=== PATIENT | male | born 1960 | race Caucasian/White ===

== ENCOUNTER → 2018-01-27 | Outpatient (CLI) | payer OTHER ==
[2018-01-27] MEDS: REGADENOSON 0.4 MG/5 ML DISP.SYRIN. IV (11:42)
== END | disposition home or self-care (01) ==
LOC: NM 07:41
DX: I10 Essential (primary) hypertension (principal); E11.9 Type 2 diabetes mellitus without complications; J44.9 Chronic obstructive pulmonary disease, unspecified; F17.200 Nicotine dependence, unspecified, uncomplicated; R06.00 Dyspnea, unspecified
CPT/HCPCS: 78452; 93017; 96374; 96375; 96376; A9500; J2785

== ENCOUNTER → 2020-12-23 | Outpatient (CLI) | payer OTHER ==
[2015-11-06 15:00] VITALS: BP 165/89
[~2020-12-23] MED LIST: AZIT250T6 PO; BENZ100C PO; HYDR-3164 PO; LISI10TA16 PO; ONDA4TAB10 SL
--- NOTE | 2020-12-23 16:38 | KCIC ---
EXAM: Lumbar spine, 5 views. HISTORY: Pain. COMPARISON: None. FINDINGS: 5 views of the lumbar spine are obtained. 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 These are no rmal variants. There is minimal retrolisthesis of L4 on L5, measuring 3 mm. There is multilevel endpl ate remodeling. There is disc space narrowing predominantly at L4-L5. There is facet arthropathy at t he mid lower lumbar levels. IMPRESSION: 1. Multilevel degenerative change, primarily at L4-L5. 2. No acute osseous finding. Electronically signed by: Ella Powell MD (12/23/2020 4:36 PM) [email or web address]
--- NOTE | 2020-12-23 16:42 | KCIC ---
EXAM: Cervical spine, 4 views HISTORY: Pain. COMPARISON: None. FINDINGS: 4 views of the cervical spine are obtained. There is mild cervical kyphosis at C5-C6. There is minimal anterolisthesis of C4 on C5. There is degenerative endplate remodeling with disc space na rrowing and osteophytosis at C5-C7. There is additional less severe endplate remodeling and anterior osteophytosis at the upper and mid cervical levels. There is multilevel facet arthropathy. IMPRESSION: 1. Multilevel degenerative change, primarily at C5-C7. 2. No acute osseous finding. Electronically signed by: Ella Powell MD (12/23/2020 4:40 PM) [email or web address]
== END ==
LOC: KCIC 15:55
PROVIDERS: ATTEND Family Medicine
DX: M47.816 Spondylosis without myelopathy or radiculopathy, lumbar region (principal); M47.22 Other spondylosis with radiculopathy, cervical region; M48.061 Spinal stenosis, lumbar region without neurogenic claudication
CPT/HCPCS: 72040; 72110